=== PATIENT | male | born 1955 | race Caucasian/White ===

== ENCOUNTER 2021-06-24 17:01 | Emergency (ER) | payer MEDICARE, OTHER, SELFPAY ==
[2021-06-24 17:06] VITALS: BP 176/97; PULSE 64; RESP 18; TEMP 36.5; O2SAT 97; BMI 33.2
[2021-06-24 18:21] VITALS: PULSE 65; RESP 18; O2SAT 95
--- NOTE | 2021-06-24 18:37 | ED_ITS ---
HPI - Recheck/Abnormal Lab/Rx <Mery Jefferson PA-C - Last Filed: 06/24/21 21:48> General Chief Complaint: Recheck/Abnormal Lab/Rx Stated Complaint: O2 keeps fluctuating s/p dental procedure Time Seen by Provider: 06/24/21 18:14 History of Present Illness HPI narrative: 66-year-old gentleman who presents to the ER sent by dental office for fluctuating oxygenation levels on pulse oximetry. States that while having dental procedure performed, oxygen levels were fluctuating from the upper to lower 90% range. Staff had not had this happen previously and sent patient to the ED. Patient does have history of sleep apnea for which he has had surgery previously. does report some PAOLA symptoms recently while sleeping. Patient denies any shortness of breath, chest pain, difficulty breathing, or additional symptoms. Related Data Previous Rx's Medication Instructions Recorded lisinopril 20 mg tablet 20 mg PO DAILY #90 tab 06/22/21 tadalafil 10 mg tablet 10 mg PO DAILY PRN #30 tab 07/20/21 Allergies Allergy/AdvReac Type Severity Reaction Status Date / Time No Known Drug Allergies Allergy Verified 07/29/21 16:27 Review of Systems <Mery Jefferson PA-C - Last Filed: 06/24/21 21:48> Review of Systems Narrative: General: denies fever, chills Head/Neck: denies headache, neck pain Eyes: denies visual changes, eye pain Cardio: denies chest pain, palpitations Respiratory: denies shortness of breath, cough GI: denies abdominal pain, nausea, vomiting, or diarrhea : denies dysuria, hematuria MSK: denies joint pain, muscle weakness Skin: denies rash, itching Neuro: denies numbness, tingling Patient History <Mery Jefferson PA-C - Last Filed: 06/24/21 21:48> Medical History Chronic low back pain Erectile dysfunction Hypertension Iron deficiency anemia Sleep apnea Social History Smoking Status: Never smoker Smoking Status: Never smoker alcohol intake frequency: holidays/special occasions only Substance Use Type: does not use Exam <Mery Jefferson PA-C - Last Filed: 06/24/21 21:48> Narrative Exam Narrative: Independently reviewed vitals signs and nursing notes. General: Awake, alert, nontoxic, no cardiorespiratory distress Head/Neck: Atraumatic, neck full range of motion Eyes: EOMI, conjunctiva normal Nose: nares patent, no rhinorrhea Mouth/Throat: moist mucus membranes, posterior pharynx normal, no oral lesions Cardio: Regular rate and rhythm, no peripheral edema Respiratory: CTAB unlabored without wheezing, stridor, or rales. No retractions. GI: Abdomen soft, nontender MSK: Moves all extremities, neurovascularly intact Skin: Normal capillary refill, no rash Neuro: Normal speech and cognition, normal gait Initial Vital Signs Initial Vital Signs: Vital Signs Temperature 97.7 F 06/24/21 17:06 Pulse Rate 64 06/24/21 17:06 Respiratory Rate 18 06/24/21 17:06 Blood Pressure 176/97 H 06/24/21 17:06 Pulse Oximetry 97 06/24/21 17:06 <Prosper Menodza MD - Last Filed: 08/20/21 07:45> Initial Vital Signs Initial Vital Signs: Vital Signs Temperature 97.7 F 06/24/21 17:06 Pulse Rate 64 06/24/21 17:06 Respiratory Rate 18 06/24/21 17:06 Blood Pressure 176/97 H 06/24/21 17:06 Pulse Oximetry 97 06/24/21 17:06 Course <Mery Jefferson PA-C - Last Filed: 06/24/21 21:48> Vital Signs Vital signs: Vital Signs - 8 hr 06/24/21 17:06 06/24/21 18:21 06/24/21 18:42 Temperature 97.7 F Pulse Rate 64 65 61 Respiratory Rate 18 18 17 Blood Pressure 176/97 H Pulse Oximetry 97 95 95 <Prosper Mendoza MD - Last Filed: 08/20/21 07:45> Vital Signs Vital signs: Vital Signs - 8 hr 06/24/21 17:06 06/24/21 18:21 06/24/21 18:42 Temperature 97.7 F Pulse Rate 64 65 61 Respiratory Rate 18 18 17 Blood Pressure 176/97 H Pulse Oximetry 97 95 95 MDM - Recheck/Abnormal Lab/Rx <eMry Jefferson PA-C - Last Filed: 06/24/21 21:48> [facility] Narrative Medical decision making narrative: 58-year-old male sent to the ER for fluctuating oxygen levels. Unclear etiology, however on monitoring today SpO2 levels did not decrease below 95%. Patient denies any symptoms concerning for acute cardiopulmonary pathology. Please follow up with PCP as directed. Return to clinic/ER precautions discussed with patient for new, not-improving, or worsening symptoms. Discharge Plan Departure Patient Disposition: Home Clinical Impression: Oxygen desaturation Activity Restrictions/Additional Instructions: *You have been diagnosed with [abnormal oxygen reading level at your dentists office]. Your oxygen levels in the ER today have been adequate and have been over 95% with good pulse oximetry waveforms. No evidence of acute cardiac or pulmonary process so additional workup today has been deferred. Recommend follow-up with your primary care provider for possible worsened sleep apnea. *What to do: [ ] New medication prescriptions sent to your pharmacy: [ ] [ ] New medication written as a paper prescription [ ] No new medications given * Please follow-up with your primary care provider in 2-3 days, call for an appointment. Let them know you were seen in the emergency department and that we ask you to be seen in follow-up. * if you do not have a primary care provider, please contact the [facility] Resource line at [phone]. They will ask some questions about your medical history and help to get up with a doctor in the community. * Return to the if you should have any new, worsening, or concerning symptoms, such as [chest pain, difficulty breathing, shortness of breath] Prescriptions: No Action tadalafil 10 mg tablet 10 mg PO DAILY PRN (Reason: sexual activity) Qty: 30 RF: 3 lisinopril 20 mg tablet 20 mg PO DAILY Qty: 90 RF: 0 Referrals: Sulaiman Saha MD [Primary Care Provider] -
[2021-06-24 18:42] VITALS: PULSE 61; RESP 17; O2SAT 95
== END 2021-06-24 18:43 | disposition home or self-care (01) ==
PROVIDERS: Emergency Provider Physician Assistant; PCP Family Medicine
DX: R09.02 Hypoxemia (principal)
CPT/HCPCS: 99281

== ENCOUNTER → 2021-08-10 14:30 | Outpatient (CLI) | payer MEDICARE, OTHER, SELFPAY ==
[2021-08-10 14:45] LABS: Add Manual Diff / Slide Review NO; Basophils Absolute Auto 100 /uL (0-100); Eosinophils Absolute Auto 200 /uL (0-450); Eosinophils Percent Auto 2.1 % (2-4); Hematocrit 45.5 % (41-53); Hemoglobin 16.1 g/dL (13.5-17.5); Lymphocytes Absolute Auto 2400 /uL (1100-4500); Lymphocytes Percent Auto 33.3 % (25-40); Mean Corpuscular HGB Conc 35.4 % (30-36); Mean Corpuscular Hemoglobin 30.8 PG (26-34); Monocytes Absolute Auto 500 /uL (0-900); Monocytes Percent Auto 7.4 % (3-14); Neutrophils Absolute Auto 4000 /uL (1500-7000); Neutrophils Percent Auto 56.2 % (50-75); Platelet Count 194 X10^3/uL (150-400); Red Blood Cell Count 5.23 X10^6/uL (4.5-5.9); Red Cell Distribution Width 13.4 % (11.6-14.8); White Blood Cell Count 7.1 X10^3/uL (4.5-11.0)
[2021-08-10 15:01] LABS: Alanine Aminotransferase 28 IU/L (<50); Albumin 4.2 g/dL (3.5-5.0); Albumin Globulin Ratio 1.6 (1.0-2.8); Alkaline Phosphatase 81 U/L (38-126); Aspartate Aminotransferase 39 IU/L (17-59); BUN Creatinine Ratio 18.2 (6-22); Bilirubin Total 0.9 mg/dL (0.2-1.3); Blood Urea Nitrogen 12 mg/dL (9-20); Calcium 8.8 mg/dL (8.4-10.2); Carbon Dioxide 25 mmol/L (22-32); Chloride 107 mmol/L (98-107); Cholesterol 262 mg/dL (140-199); Estimated Glomerular Filt Rate > 60.0 mL/min (>60); Globulin 2.6 g/dL (1.7-4.1); Glucose 98 mg/dL (80-110); HDL Cholesterol 37 mg/dL (40-60); HEMOLYSIS < 15 (0-50); LDL Cholesterol Calculated 167 mg/dL (<100); Potassium 3.9 mmol/L (3.4-5.1); Sodium 139 mmol/L (137-145); Total Protein 6.8 g/dL (6.3-8.2); Triglycerides 288 mg/dL (35-150)
[2021-08-10 15:29] LABS: Prostate Specific Antigen Scrn 1.26 ng/mL (0.1-4.0)
[2021-08-10 16:54] LABS: Microalbumin Urine Random 1.7 mg/dL (0-1.6)
[2021-08-10 16:55] LABS: Creatinine Urine Random 184.3 mg/dL; Microalbumi Creatinin Ratio Ur 9.2 ug/mg CR (<30)
== END ==
PROVIDERS: PCP Family Medicine; Referring Provider Family Medicine; Visit Provider Family Medicine
DX: D50.9 Iron deficiency anemia, unspecified (principal); I10 Essential (primary) hypertension; Z12.5 Encounter for screening for malignant neoplasm of prostate; G89.29 Other chronic pain; N52.9 Male erectile dysfunction, unspecified
CPT/HCPCS: 36415; 80053; 80061; 82043; 82570; 85025; G0103

== ENCOUNTER → 2022-01-03 10:02 | Outpatient (CLI) | payer MEDICARE, OTHER, SELFPAY ==
[2022-01-03 10:32] LABS: Add Manual Diff / Slide Review NO; Basophils Absolute Auto 100 /uL (0-100); Basophils Percent Auto 0.6 % (0-2); Eosinophils Absolute Auto 100 /uL (0-450); Eosinophils Percent Auto 1.6 % (2-4); Hematocrit 45.5 % (41-53); Hemoglobin 16.3 g/dL (13.5-17.5); Lymphocytes Absolute Auto 2500 /uL (1100-4500); Lymphocytes Percent Auto 30.5 % (25-40); Mean Corpuscular HGB Conc 35.8 % (30-36); Mean Corpuscular Hemoglobin 31.3 PG (26-34); Mean Corpuscular Volume 87.4 fL (80-100); Monocytes Absolute Auto 600 /uL (0-900); Monocytes Percent Auto 7.7 % (3-14); Neutrophils Absolute Auto 4800 /uL (1500-7000); Neutrophils Percent Auto 59.6 % (50-75); Platelet Count 212 X10^3/uL (150-400); Red Cell Distribution Width 13.2 % (11.6-14.8); White Blood Cell Count 8.1 X10^3/uL (4.5-11.0)
[2022-01-03 11:33] LABS: Alanine Aminotransferase 26 IU/L (<50); Albumin 4.3 g/dL (3.5-5.0); Albumin Globulin Ratio 1.5 (1.0-2.8); Alkaline Phosphatase 85 U/L (38-126); Aspartate Aminotransferase 37 IU/L (17-59); BUN Creatinine Ratio 13.8 (6-22); Blood Urea Nitrogen 12 mg/dL (9-20); Calcium 8.7 mg/dL (8.4-10.2); Carbon Dioxide 31 mmol/L (22-32); Chloride 105 mmol/L (98-107); Cholesterol 171 mg/dL (140-199); Estimated Glomerular Filt Rate > 60.0 mL/min (>60); Globulin 2.8 g/dL (1.7-4.1); Glucose 104 mg/dL (80-110); HDL Cholesterol 34 mg/dL (40-60); HEMOLYSIS < 15 (0-50); LDL Cholesterol Calculated 94 mg/dL (<100); Potassium 3.7 mmol/L (3.4-5.1); Sodium 143 mmol/L (137-145); Total Protein 7.1 g/dL (6.3-8.2); Triglycerides 216 mg/dL (35-150)
[2022-01-03 19:36] LABS: Microalbumin Urine Random 2.8 mg/dL (0-1.6)
[2022-01-03 19:46] LABS: Creatinine Urine Random 303.7 mg/dL; Microalbumi Creatinin Ratio Ur 9.2 ug/mg CR (<30)
== END ==
PROVIDERS: PCP Family Medicine; Referring Provider Family Medicine; Visit Provider Family Medicine
DX: D50.9 Iron deficiency anemia, unspecified (principal); E78.2 Mixed hyperlipidemia; I10 Essential (primary) hypertension
CPT/HCPCS: 36415; 80053; 80061; 82043; 82570; 85025

== ENCOUNTER → 2022-03-11 10:30 | Outpatient (CLI) | payer MEDICARE, OTHER, SELFPAY ==
[2022-03-11 12:20] LABS: Alanine Aminotransferase 31 IU/L (<50); Albumin 4.1 g/dL (3.5-5.0); Albumin Globulin Ratio 1.6 (1.0-2.8); Alkaline Phosphatase 91 U/L (38-126); Aspartate Aminotransferase 43 IU/L (17-59); BUN Creatinine Ratio 16.1 (6-22); Bilirubin Total 0.7 mg/dL (0.2-1.3); Blood Urea Nitrogen 14 mg/dL (9-20); Calcium 8.6 mg/dL (8.4-10.2); Carbon Dioxide 25 mmol/L (22-32); Chloride 108 mmol/L (98-107); Estimated Glomerular Filt Rate > 60 mL/min (>60); Globulin 2.6 g/dL (1.7-4.1); Glucose 152 mg/dL (80-110); HEMOLYSIS 27 (0-50); Potassium 3.5 mmol/L (3.4-5.1); Sodium 142 mmol/L (137-145); Total Protein 6.7 g/dL (6.3-8.2)
[2022-03-11 12:44] LABS: Prostate Specific Antigen Scrn 1.25 ng/mL (0.1-4.0)
[2022-03-18 17:09] LABS: Percent Free Testosterone 3.03 % (1.50-4.20); Testosterone Free 7.29 ng/dL (5.00-21.00); Testosterone Total 240.5 ng/dL (264.0-916.0)
== END ==
PROVIDERS: PCP Family Medicine; Referring Provider Family Medicine; Visit Provider Family Medicine
DX: Z12.5 Encounter for screening for malignant neoplasm of prostate (principal); E78.5 Hyperlipidemia, unspecified; I10 Essential (primary) hypertension; N52.9 Male erectile dysfunction, unspecified; R68.82 Decreased libido
CPT/HCPCS: 36415; 80053; 84402; 84403; G0103

== ENCOUNTER → 2022-05-13 | Outpatient (CLI) | payer MEDICARE, OTHER, SELFPAY ==
[2022-05-13 13:41] LABS: Alanine Aminotransferase 51 IU/L (<50); Albumin 4.1 g/dL (3.5-5.0); Alkaline Phosphatase 75 U/L (38-126); Aspartate Aminotransferase 63 IU/L (17-59); BUN Creatinine Ratio 20.2 (6-22); Bilirubin Total 1.1 mg/dL (0.2-1.3); Blood Urea Nitrogen 17 mg/dL (9-20); Carbon Dioxide 30 mmol/L (22-32); Chloride 104 mmol/L (98-107); Estimated Glomerular Filt Rate > 60 mL/min (>60); Globulin 2.1 g/dL (1.7-4.1); Glucose 102 mg/dL (80-110); HEMOLYSIS < 15 (0-50); Potassium 3.9 mmol/L (3.4-5.1); Sodium 140 mmol/L (137-145); Total Protein 6.2 g/dL (6.3-8.2)
[2022-05-21 17:17] LABS: Percent Free Testosterone 3.52 % (1.50-4.20); Testosterone Free 16.73 ng/dL (5.00-21.00); Testosterone Total 475.4 ng/dL (264.0-916.0)
== END ==
LOC: LAB 11:43
PROVIDERS: PCP Family Medicine; Referring Provider Family Medicine; Visit Provider Family Medicine
DX: R79.89 Other specified abnormal findings of blood chemistry (principal)
CPT/HCPCS: 36415; 80053; 84402; 84403

== ENCOUNTER → 2022-12-01 09:35 | Outpatient (CLI) | payer MEDICARE, OTHER, SELFPAY ==
[2022-12-01 09:55] LABS: Add Manual Diff / Slide Review NO; Basophils Absolute Auto 100 /uL (0-100); Basophils Percent Auto 0.8 % (0-2); Eosinophils Absolute Auto 200 /uL (0-450); Eosinophils Percent Auto 2.2 % (2-4); Hematocrit 46.7 % (41-53); Hemoglobin 16.3 g/dL (13.5-17.5); Lymphocytes Absolute Auto 2300 /uL (1100-4500); Lymphocytes Percent Auto 32.1 % (25-40); Mean Corpuscular Hemoglobin 31.3 PG (26-34); Mean Corpuscular Volume 89.2 fL (80-100); Monocytes Absolute Auto 500 /uL (0-900); Monocytes Percent Auto 6.5 % (3-14); Neutrophils Absolute Auto 4200 /uL (1500-7000); Neutrophils Percent Auto 58.4 % (50-75); Platelet Count 215 X10^3/uL (150-400); Red Blood Cell Count 5.23 X10^6/uL (4.5-5.9); Red Cell Distribution Width 13.2 % (11.6-14.8); White Blood Cell Count 7.1 X10^3/uL (4.5-11.0)
[2022-12-01 10:09] LABS: Alanine Aminotransferase 36 IU/L (<50); Albumin 4.1 g/dL (3.5-5.0); Albumin Globulin Ratio 1.6 (1.0-2.8); Alkaline Phosphatase 78 U/L (38-126); Aspartate Aminotransferase 42 IU/L (17-59); BUN Creatinine Ratio 18.2 (6-22); Blood Urea Nitrogen 14 mg/dL (9-20); Calcium 8.8 mg/dL (8.4-10.2); Carbon Dioxide 31 mmol/L (22-32); Chloride 101 mmol/L (98-107); Estimated Glomerular Filt Rate > 60 mL/min (>60); Globulin 2.5 g/dL (1.7-4.1); Glucose 105 mg/dL (80-110); HEMOLYSIS < 15 (0-50); Potassium 3.5 mmol/L (3.4-5.1); Sodium 142 mmol/L (137-145); Total Protein 6.6 g/dL (6.3-8.2)
[2022-12-11 17:20] LABS: Percent Free Testosterone 1.99 % (1.50-4.20); Testosterone Free 6.07 ng/dL (5.00-21.00); Testosterone Total 304.8 ng/dL (264.0-916.0)
== END ==
PROVIDERS: PCP Family Medicine; Referring Provider Family Medicine; Visit Provider Family Medicine
DX: E78.2 Mixed hyperlipidemia (principal); Z12.5 Encounter for screening for malignant neoplasm of prostate; I10 Essential (primary) hypertension; R79.89 Other specified abnormal findings of blood chemistry
CPT/HCPCS: 36415; 80053; 84402; 84403; 85025; G0103

== ENCOUNTER → 2022-12-14 10:01 | Outpatient (CLI) | payer MEDICARE, OTHER, SELFPAY ==
[2022-12-14 11:37] LABS: Cholesterol 184 mg/dL (140-199); HDL Cholesterol 38 mg/dL (40-60); LDL Cholesterol Calculated 94 mg/dL (<100); Triglycerides 261 mg/dL (35-150)
== END ==
PROVIDERS: PCP Family Medicine; Referring Provider Family Medicine; Visit Provider Family Medicine
DX: E78.2 Mixed hyperlipidemia (principal)
CPT/HCPCS: 36415; 80061

== ENCOUNTER → 2023-02-10 12:15 | Outpatient (CLI) | payer MEDICARE, OTHER, SELFPAY ==
[2023-02-10 12:55] LABS: Add Manual Diff / Slide Review NO; Basophils Absolute Auto 100 /uL (0-100); Basophils Percent Auto 1.2 % (0-2); Eosinophils Absolute Auto 200 /uL (0-450); Hematocrit 45.7 % (41-53); Hemoglobin 16.3 g/dL (13.5-17.5); Lymphocytes Absolute Auto 2300 /uL (1100-4500); Lymphocytes Percent Auto 28.9 % (25-40); Mean Corpuscular HGB Conc 35.6 % (30-36); Mean Corpuscular Hemoglobin 31.9 PG (26-34); Mean Corpuscular Volume 89.5 fL (80-100); Monocytes Absolute Auto 500 /uL (0-900); Monocytes Percent Auto 6.2 % (3-14); Neutrophils Absolute Auto 4900 /uL (1500-7000); Neutrophils Percent Auto 61.7 % (50-75); Platelet Count 216 X10^3/uL (150-400); Red Cell Distribution Width 13.2 % (11.6-14.8); White Blood Cell Count 7.9 X10^3/uL (4.5-11.0)
[2023-02-10 13:25] LABS: HEMOLYSIS < 15 (0-50); Iron 114 ug/dL (49-181)
[2023-02-10 13:26] LABS: Alanine Aminotransferase 38 IU/L (<50); Albumin 4.2 g/dL (3.5-5.0); Albumin Globulin Ratio 1.5 (1.0-2.8); Alkaline Phosphatase 91 U/L (38-126); Aspartate Aminotransferase 41 IU/L (17-59); BUN Creatinine Ratio 16.5 (6-22); Bilirubin Total 0.9 mg/dL (0.2-1.3); Blood Urea Nitrogen 14 mg/dL (9-20); Calcium 8.9 mg/dL (8.4-10.2); Carbon Dioxide 30 mmol/L (22-32); Chloride 103 mmol/L (98-107); Estimated Glomerular Filt Rate > 60 mL/min (>60); Globulin 2.8 g/dL (1.7-4.1); Glucose 126 mg/dL (80-110); HEMOLYSIS < 15 (0-50); Potassium 3.3 mmol/L (3.4-5.1); Sodium 140 mmol/L (137-145)
[2023-02-10 13:36] LABS: Percent Iron Saturation 35 % (20-50); Total Iron Binding Capacity 325 ug/dL (261-462); Transferrin 263 mg/dL (206-381)
[2023-02-10 13:55] LABS: Prostate Specific Antigen 1.67 ng/mL (0.10-4.00)
[2023-02-10 15:03] LABS: Vitamin D 25 Hydroxy (D3) 45.7 ng/mL (30.0-100.0)
[2023-02-21 23:51] LABS: Testosterone Free 5.74 ng/dL (5.00-21.00); Testosterone Total 302.2 ng/dL (264.0-916.0)
== END ==
PROVIDERS: PCP Family Medicine; Referring Provider Family Medicine; Visit Provider Family Medicine
DX: D50.9 Iron deficiency anemia, unspecified (principal); N40.0 Benign prostatic hyperplasia without lower urinary tract symptoms; E78.5 Hyperlipidemia, unspecified; I10 Essential (primary) hypertension; R79.89 Other specified abnormal findings of blood chemistry; E55.9 Vitamin D deficiency, unspecified
CPT/HCPCS: 36415; 80053; 82306; 83540; 83550; 84153; 84402; 84403; 85025

== ENCOUNTER → 2024-03-21 09:44 | Outpatient (CLI) | payer MEDICARE, OTHER, SELFPAY ==
--- NOTE | 2024-03-21 09:46 | DI.RAD.S_ITS ---
PROCEDURE: XR CHEST 2V INDICATIONS: Cough TECHNIQUE: 2 views of the chest were acquired. COMPARISON: None. FINDINGS: Surgical changes and devices: None. Lungs and pleura: Diffuse interstitial prominence. Mild perihilar airway thickening. No dense consolidation. No pleural effusions or pneumothorax. Mediastinum: Mediastinal contours are normal. Heart size is normal. Bones and chest wall: No suspicious bony abnormalities. Soft tissues appear unremarkable. IMPRESSION: Diffuse interstitial prominence with mild perihilar airway thickening likely related to infectious or inflammatory process with viral etiology most likely. No dense consolidation seen. Recommend follow up chest radiograph 4-6 weeks after treatment to document resolution of findings and/or return to baseline examination. Dictated by: Marcus Paul M.D. on 03/21/2024 at 17:07 Approved by: Marcus Paul M.D. on 03/21/2024 at 17:10
== END ==
PROVIDERS: PCP Family Medicine; Referring Provider Nurse Practitioner Family; Visit Provider Nurse Practitioner Family
DX: R05.9 Cough, unspecified (principal)
CPT/HCPCS: 71046

== ENCOUNTER → 2024-07-29 10:33 | Outpatient (CLI) | payer MEDICARE, OTHER, SELFPAY ==
[2024-07-29 11:36] LABS: Add Manual Diff / Slide Review NO; Basophils Absolute Auto 100 /uL (0-100); Basophils Percent Auto 1.1 % (0-2); Eosinophils Absolute Auto 100 /uL (0-450); Eosinophils Percent Auto 1.7 % (2-4); Hematocrit 45.7 % (41-53); Hemoglobin 16.3 g/dL (13.5-17.5); Lymphocytes Absolute Auto 1800 /uL (1100-4500); Lymphocytes Percent Auto 25.6 % (25-40); Mean Corpuscular HGB Conc 35.6 % (30-36); Mean Corpuscular Hemoglobin 31.1 PG (26-34); Mean Corpuscular Volume 87.3 fL (80-100); Monocytes Absolute Auto 500 /uL (0-900); Neutrophils Absolute Auto 4400 /uL (1500-7000); Neutrophils Percent Auto 64.6 % (50-75); Platelet Count 244 X10^3/uL (150-400); Red Blood Cell Count 5.24 X10^6/uL (4.5-5.9); Red Cell Distribution Width 13.5 % (11.6-14.8); White Blood Cell Count 6.9 X10^3/uL (4.5-11.0)
[2024-07-29 12:15] LABS: HEMOLYSIS < 15 (0-50); Hemoglobin A1C% w Est Avg Glu 5.5 % (4.0-6.0); Iron 132 ug/dL (49-181)
[2024-07-29 12:20] LABS: Alanine Aminotransferase 30 IU/L (<50); Albumin 4.4 g/dL (3.5-5.0); Albumin Globulin Ratio 1.9 (1.0-2.8); Alkaline Phosphatase 83 U/L (38-126); Aspartate Aminotransferase 37 IU/L (17-59); BUN Creatinine Ratio 17.3 (6-22); Blood Urea Nitrogen 14 mg/dL (9-20); Calcium 9.6 mg/dL (8.4-10.2); Carbon Dioxide 24 mmol/L (22-32); Chloride 106 mmol/L (98-107); Cholesterol 299 mg/dL (140-199); Estimated Glomerular Filt Rate > 60 mL/min (>60); Globulin 2.3 g/dL (1.7-4.1); Glucose 108 mg/dL (80-110); HDL Cholesterol 38 mg/dL (40-60); HEMOLYSIS < 15 (0-50); LDL Cholesterol Calculated 194 mg/dL (<100); Potassium 3.8 mmol/L (3.4-5.1); Sodium 140 mmol/L (137-145); Total Protein 6.7 g/dL (6.3-8.2); Triglycerides 333 mg/dL (35-150)
[2024-07-29 12:27] LABS: Percent Iron Saturation 37 % (20-50); Total Iron Binding Capacity 355 ug/dL (261-462); Transferrin 290 mg/dL (206-381)
[2024-08-11 14:07] LABS: Testosterone Free 7.75 ng/dL (5.00-21.00)
== END ==
PROVIDERS: PCP Family Medicine; Referring Provider Family Medicine; Visit Provider Family Medicine
DX: E78.5 Hyperlipidemia, unspecified (principal); R73.03 Prediabetes; I10 Essential (primary) hypertension; R79.89 Other specified abnormal findings of blood chemistry; D50.9 Iron deficiency anemia, unspecified
CPT/HCPCS: 36415; 80053; 80061; 83036; 83540; 83550; 84402; 84403; 85025